=== PATIENT | female | born 1990 | race African-American/Black ===

== ENCOUNTER 2016-12-21 09:13 | Emergency (ER) | payer SELFPAY ==
[2016-12-21 09:19] VITALS: BP 154/98; BMI 44.9
--- NOTE | 2016-12-21 11:01 | DR.GENAD ---
HPI - PCP Primary Care Physician: RAFAEL - Complaint/Symptoms Chief Complaint:: PT C/O SORE THROAT, FEVER, CHILLS, H/A, BODY ACHES. PT STATES IT ALL STARTED YESTERDAY. - Nurses notes reviewed Nurses Notes Review: Yes - Source History Provided: Patient - Mode of Arrival Mode of Arrival: Ambulatory - Timing Onset of Chief Complaint: 12/20/16 Came on: Gradually - Duration Duration: Intermittent How lon Duration: Days - Location Location: generalized - Severity Severity: Moderate - Modifying Factors Worsens:: swallowing - Associated Signs and Symptoms Associated Signs and Symptoms: fever PMH - PMH Past Medical History: Yes Past Medical History: Hypertension Past Surgical History: Yes Surgical History: - Family History History of Family Medical Conditions: Yes Family Medical History: Diabetes Mellitus, Hypertension - Social History Does patient currently use any type of tobacco product: Yes Have you used tobacco products in the last 12 months: Yes Type of Tobacco Use: Cigarettes Does any household member use tobacco: Yes Alcohol Use: None Do you use any recreational Drugs:: No Lives With: Family Lives Where: Home - infectious screening In the last 2 months have you had wt loss of >10#?: NO Have you had fever, night sweats or hemotysis?: No Have you traveled outside the country in the last 6 months?: No Isolation: Standard ROS - Review of Systems Constitutional: Fever Eyes: No Symptoms Reported ENTM: Throat Pain Respiratoy: No Symptoms Reported Cardiovascular: No Symptoms Reported Gastrointestinal/Abdominal: Nausea Genitourinary: No Symptoms Reported Neurological: No Symptoms Reported Musculoskeletal: Joint Pain Hematologic/Lymphatic: No Symptoms Reported Psychiatric: Depression All Other Systems: Reviewed and Negative PE - Vital Signs Vitals: Temperature 102.7 F Pulse Rate 109 Respiratory Rate 20 Blood Pressure [Left Arm] 136/84 Blood Pressure [Right Arm] 136/75 Blood Pressure 154/98 O2 Sat by Pulse Oximetry 99 - General Limitations: No Limitations General Appearance: Alert, In No Apparent Distress - Head Head Exam: Normal Inspection - Eyes Eye exam: Normal Appearance, EOMI. negative: Scleral Icterus, Conjunctival Injection - ENT ENT Exam: negative: Normal Oropharynx External Ear Exam: Normal External Inspection Nose Exam: Normal Nose Exam Mouth Exam: Normal Inspection Throat Exam: Tonsillar Erythema - Neck Neck Exam: Normal Inspection, Full ROM, Trachea Midline - Chest Chest Inspection: Normal Inspection - Respiratory Respiratory Exam: Normal Lung Sounds Bilat. negative: Accessory Muscle Use, Respiratory Distress Respiratory Exam: Bilateral Clear to Auscultation - Cardiovascular Cardiovascular Exam: Tachycardia - Abdominal Exam Abdominal Exam: Normal Inspection, Normal Bowel Sounds, Soft - Extremities Extremities Exam: Normal Inspection, Full ROM - Back Back Exam: Normal Inspection - Neurologic Neurological Exam: Alert, Oriented X3, CN II-XII Intact - Psychiatric Psychiatric Exam: Depressed - Skin Skin Exam: Intact, Normal Color ROR - Labs Reviewed Laboratory: Streptococcus Screen Negative (NEGATIVE) 12/21/16 11:08 - Diagnosis Discharge Problem: Pharyngitis Qualifiers: Pharyngitis/tonsillitis etiology: unspecified etiology Qualified Code(s): J02.9 - Acute pharyngitis, unspecified - Discharge Plan Condition: Stable Prescriptions: Ibuprofen [Motrin Tab 800 mg] 800 mg PO Q8H PRN #30 tab PRN Reason: Pain/Inflammation Ondansetron [Zofran Odt] 4 mg PO Q8H PRN #12 tab PRN Reason: Nausea/Vomiting - Follow ups/Referrals Follow ups/Referrals: WENCESLAO HILLS [Primary Care Provider] - 3 days - Instructions
[2016-12-21] MEDS ORDERED: MOTRIN TAB 800 MG PO ONE ×2 (11:09→11:28)
[2016-12-21] MEDS ORDERED: ZOFRAN TAB 4 MG PO ONE (11:09)
[2016-12-21] MEDS ORDERED: ZOFRAN TAB 4 MG ONE (11:28)
== END 2016-12-21 12:05 | disposition home or self-care (01) ==
LOC: ER 09:13
DX: J02.9 Acute pharyngitis, unspecified (principal); B95.62 Methicillin resistant Staphylococcus aureus infection as the cause of diseases classified elsewhere
CPT/HCPCS: 87070; 87186; 87502; 87503; 87880; 99282; S0181

== ENCOUNTER → 2017-01-10 | Outpatient (CLI) | payer OTHER ==
[2016-12-21 09:19] VITALS: BP 154/98
--- NOTE | 2017-01-10 12:51 | RAD ---
HISTORY: Tendonitis Study: Left wrist 4 views Comparison: None Findings: No evidence for acute cortical disruption or dislocation can be identified. The carpal bones appear well aligned. The visualized portions of the distal radius and ulna are unremarkable. No signific ant soft tissue abnormality can be identified. the joints are normal. IMPRESSION: 1. Negative exam. Reported By:
--- NOTE | 2017-01-10 12:58 | RAD ---
HISTORY: Tendonitis Study: Right wrist four view Comparison: None Findings: No evidence for acute cortical disruption or dislocation can be identified. The carpal bones appear well aligned. The visualized portions of the distal radius and ulna are unremarkable. No signific ant soft tissue abnormality can be identified. the joints are normal. IMPRESSION: 1. Negative exam. Reported By:
--- NOTE | 2017-01-10 12:58 | RAD ---
HISTORY: Low back strain Study: Lumbar spine three view Comparison: September 01, 2016 Findings: Normal alignment of the lumbar spine is maintained. The posterior elements appear unremarkable in t heir appearance. The disk space height is maintained without significant endplate sclerosis. No ev idence for acute fracture can be identified. The SI joints are normal. IMPRESSION: 1. Negative exam. Reported By:
--- NOTE | 2017-01-10 13:00 | RAD ---
Right hand, three views Indication: Tingling and numbness of the fingers. Thumb tendinitis Comparison: None Findings: No cortical lucency or malalignment of the hand identified. The joint spaces are intact. N o significant soft tissue abnormality. Impression: Negative exam of the right hand. Reported By:
--- NOTE | 2017-01-10 13:01 | RAD ---
Left hand, three views Indication: Tingling and numbness of the fingers. Thumb tendinitis Comparison: None Findings: No cortical lucency or malalignment of the hand identified. The joint spaces are intact. N o significant soft tissue abnormality. Impression: Negative exam of the left hand. Reported By:
== END ==
LOC: RAD 11:12
PROVIDERS: ATTEND Nurse Practitioner Family
DX: M77.8 Other enthesopathies, not elsewhere classified (principal); S39.012S Strain of muscle, fascia and tendon of lower back, sequela; X58.XXXS Exposure to other specified factors, sequela
CPT/HCPCS: 72100; 73100; 73130

== ENCOUNTER → 2017-03-21 | Outpatient (CLI) | payer OTHER ==
[2017-03-21 09:37] LABS: BLOOD UREA NITROGEN 9 mg/dL (7-18); CALCIUM 8.9 mg/dL (8.5-10.1); CARBON DIOXIDE 28.2 mmol/L (21-32); CHLORIDE 104 mmol/L (98-107); CHOL/HDL RATIO 2.7 (0.0-5.0); CHOLESTEROL 180 mg/dL (0-200); CREATININE 0.73 mg/dL (0.55-1.02); GLUCOSE 82 mg/dL (65-99); HDL CHOLESTEROL 66 mg/dL (40-60); SODIUM 138 mmol/L (136-145); TRIGLYCERIDES 36 mg/dL (0-150); eGFR BLACK RACES > 60 (>60); eGFR NON BLACK RACES > 60 (>60)
[2017-03-21 09:52] LABS: BASOPHILS # (AUTO) 0.1 X10^3/uL (0.0-0.1); BASOPHILS % (AUTO) 0.8 % (0.2-1.0); EOSINOPHILS # (AUTO) 0.2 x10^3/uL (0.0-0.2); EOSINOPHILS % (AUTO) 2.3 % (0.9-2.9); HEMATOCRIT 37.2 % (36.0-47.0); HEMOGLOBIN 12.6 g/dL (12.0-16.0); LYMPHOCYTES # (AUTO) 3.3 X10^3/uL (1.3-2.9); MEAN CORPUSCULAR HEMOGLOBIN 28.7 pg (27.0-34.0); MEAN CORPUSCULAR HGB CONC 33.9 g/dL (33.0-35.0); MEAN CORPUSCULAR VOLUME 84.8 fL (80.0-100.0); MEAN PLATELET VOLUME 9.5 fL (7.4-11.0); MONOCYTES # (AUTO) 0.5 x10^3/uL (0.3-0.8); MONOCYTES % (AUTO) 6.1 % (0.0-13.0); NEUTROPHILS # (AUTO) 4.8 x10^3/uL (2.2-4.8); NEUTROPHILS % (AUTO) 53.8 % (42.0-75.0); PLATELET COUNT 279 X10^3/uL (150.0-450.0); RED BLOOD COUNT 4.39 X10^6/uL (3.5-5.4); RED CELL DISTRIBUTION WIDTH 13.9 % (11.6-16.5); RETICULOCYTE % 1.89 % (0.8-2.2); WHITE BLOOD COUNT 8.9 X10^3/uL (3.6-10.0)
[2017-03-21 10:35] LABS: ERYTHROCYTE SEDIMENTATION RATE 31 MM/HOUR (0-20)
[2017-03-26 05:29] LABS: METHYLMALONIC ACID 0.11 umol/L (0.00-0.40)
== END ==
LOC: LAB 08:52
PROVIDERS: ATTEND Nurse Practitioner Family
DX: I10 Essential (primary) hypertension (principal); R20.0 Anesthesia of skin; E66.01 Morbid (severe) obesity due to excess calories
CPT/HCPCS: 36415; 80048; 80061; 82607; 82615; 82746; 83918; 85025; 85045; 85652; 86140; 86256; 86340

== ENCOUNTER → 2017-03-27 | Outpatient (CLI) | payer OTHER ==
[2017-03-27 15:05] LABS: T4 (THYROXINE) 7.1 ug/dL (4.7-13.3); TSH (3RD GENERATION) 0.844 uIU/mL (0.358-3.74)
== END ==
LOC: LAB 14:26
PROVIDERS: ATTEND Nurse Practitioner Family
DX: Z13.29 Encounter for screening for other suspected endocrine disorder (principal)
CPT/HCPCS: 36415; 84436; 84443; 86800

== ENCOUNTER 2017-09-03 09:19 | Emergency (ER) | payer OTHER ==
[2017-09-03 09:26] VITALS: BP 140/105; BMI 46.0
--- NOTE | 2017-09-03 09:54 | DR.GENAD ---
HPI - PCP Primary Care Physician: KALINA HILLS - Complaint/Symptoms Chief Complaint Doctors Comments: History as stated of acute ear pain since last night. Denies recent fever, cough or congestion. Chief Complaint:: PATIENT IS C/O PAIN IN HER RIGHT EAR. STARTED LAST NIGHT. - Source History Provided: Patient - Timing Onset of Chief Complaint: 09/02/17 PMH - PMH Past Medical History: Yes Past Medical History: Hypertension Past Surgical History: Yes Surgical History: - Family History History of Family Medical Conditions: Yes Family Medical History: Diabetes Mellitus, Hypertension - Social History Does patient currently use any type of tobacco product: Yes Have you used tobacco products in the last 12 months: Yes Type of Tobacco Use: Cigarettes Does any household member use tobacco: No Alcohol Use: None Do you use any recreational Drugs:: No Lives With: Family Lives Where: Home - infectious screening In the last 2 months have you had wt loss of >10#?: NO Have you had fever, night sweats or hemotysis?: No Have you traveled outside the country in the last 6 months?: No Isolation: Standard ROS - Review of Systems Eyes: No Symptoms Reported ENTM: Ear Pain (right) Respiratoy: No Symptoms Reported Cardiovascular: No Symptoms Reported Gastrointestinal/Abdominal: No Symptoms Reported Genitourinary: No Symptoms Reported Neurological: No Symptoms Reported Musculoskeletal: No Symptoms Reported Integumentary: No Symptoms Reported Hematologic/Lymphatic: No Symptoms Reported Endocrine: No Symptoms Reported Psychiatric: No Symptoms Reported, See HPI All Other Systems: Reviewed and Negative PE - Vital Signs Vitals: Temperature 97.9 F Pulse Rate 78 Respiratory Rate 20 Blood Pressure [Left Arm] 136/84 Blood Pressure [Right Arm] 136/75 Blood Pressure 140/105 O2 Sat by Pulse Oximetry 97 - General Limitations: No Limitations General Appearance: Alert, In No Apparent Distress - Head Head Exam: Normal Inspection, Atraumatic - Eyes Eye exam: Normal Appearance, PERRL, EOMI - ENT ENT Exam: Normal Exam. negative: TM's Normal Bilaterally (Right TM red immobile ) External Ear Exam: Normal External Inspection TM/Canal Exam: Bilateral Normal Nose Exam: Normal Nose Exam Mouth Exam: Normal Inspection Throat Exam: Normal Inspection - Neck Neck Exam: Normal Inspection, Full ROM - Chest Chest Inspection: Normal Inspection - Respiratory Respiratory Exam: Normal Lung Sounds Bilat Respiratory Exam: Bilateral Clear to Auscultation - Cardiovascular Cardiovascular Exam: Regular Rate, Normal Rhythm - Abdominal Exam Abdominal Exam: Normal Inspection, Normal Bowel Sounds Abdominal Tenderness: negative: RUQ, RLQ, LUQ, LLQ, Epigastrium, Suprapubic, Diffuse, Mild, Moderate, Severe, Other - Extremities Extremities Exam: Normal Inspection, Full ROM - Back Back Exam: Normal Inspection, Full ROM, Tenderness - Neurologic Neurological Exam: Alert, Oriented X3, CN II-XII Intact - Skin Skin Exam: Warm, Dry, Intact Course - Education/Counseling Education/Counseling: Education Educated On: Treatment, Diagnosis, Prognosis - Diagnosis Discharge Problem: Right otitis media Qualifiers: Otitis media type: suppurative Chronicity: acute Recurrence: not specified as recurrent Spontaneous tympanic membrane rupture: without spontaneous rupture Qualified Code(s): H66.001 - Acute suppurative otitis media without spontaneous rupture of ear drum, right ear - Discharge Plan Condition: Stable - Follow ups/Referrals Follow ups/Referrals: WENCESLAO HILLS [Primary Care Provider] - 3 days - Instructions
[2017-09-03] MEDS ORDERED: TORADOL 60 MG VIAL IM ONE (09:57)
[2017-09-03] MEDS ORDERED: TORADOL 60 MG VIAL ONE (09:58)
== END 2017-09-03 10:19 | disposition home or self-care (01) ==
LOC: ER 09:29
DX: H66.001 Acute suppurative otitis media without spontaneous rupture of ear drum, right ear (principal)
CPT/HCPCS: 96372; 99282; J1885

== ENCOUNTER 2017-09-16 18:30 | Emergency (ER) | payer OTHER ==
[2017-09-16 18:40] VITALS: BMI 43.2
[2017-09-16] MEDS ORDERED: ZOFRAN SYRUP 4 MG UDC PO ONE (19:06)
[2017-09-16] MEDS ORDERED: ZOFRAN TAB 4 MG ONE (19:07)
--- NOTE | 2017-09-16 19:07 | DR.GENAD ---
HPI - PCP Primary Care Physician: KALINA HILLS - Complaint/Symptoms Chief Complaint Doctors Comments: Patient reports that she has had her influenca shot. Admits to vomiting x 2-3 and diarrhea x2. Chief Complaint:: VOMITNG AND DIARRHEA 3 TIMES IN THE LAST 12 HOURS - Source History Provided: Patient - Mode of Arrival Mode of Arrival: Ambulatory - Timing Onset of Chief Complaint: 09/16/17 PMH - PMH Past Medical History: Yes Past Medical History: Hypertension Past Surgical History: Yes Surgical History: - Family History History of Family Medical Conditions: Yes Family Medical History: Diabetes Mellitus, Hypertension - Social History Type of Tobacco Use: Cigarettes Does any household member use tobacco: Yes Alcohol Use: None Do you use any recreational Drugs:: No Lives With: Family Lives Where: Home - infectious screening In the last 2 months have you had wt loss of >10#?: NO Have you had fever, night sweats or hemotysis?: No Have you traveled outside the country in the last 6 months?: No Isolation: Standard ROS - Review of Systems Eyes: No Symptoms Reported ENTM: No Symptoms Reported Respiratoy: No Symptoms Reported Cardiovascular: No Symptoms Reported Gastrointestinal/Abdominal: Diarrhea, Nausea, Vomiting Genitourinary: No Symptoms Reported Neurological: No Symptoms Reported Musculoskeletal: No Symptoms Reported Integumentary: No Symptoms Reported Hematologic/Lymphatic: No Symptoms Reported Endocrine: No Symptoms Reported Psychiatric: No Symptoms Reported All Other Systems: Reviewed and Negative PE - Vital Signs Vitals: Temperature 97.7 F Pulse Rate 72 Respiratory Rate 18 Blood Pressure [Left Arm] 136/84 Blood Pressure [Right Arm] 136/75 Blood Pressure 135/93 O2 Sat by Pulse Oximetry 99 - General General Appearance: Alert, In No Apparent Distress - Head Head Exam: Normal Inspection, Atraumatic - Eyes Eye exam: Normal Appearance, PERRL, EOMI - ENT ENT Exam: Normal Exam External Ear Exam: Normal External Inspection TM/Canal Exam: Bilateral Normal Nose Exam: Normal Nose Exam Mouth Exam: Normal Inspection Throat Exam: Normal Inspection - Neck Neck Exam: Normal Inspection - Chest Chest Inspection: Normal Inspection - Respiratory Respiratory Exam: Normal Lung Sounds Bilat Respiratory Exam: Bilateral Clear to Auscultation - Cardiovascular Cardiovascular Exam: Regular Rate, Normal Rhythm - Abdominal Exam Abdominal Exam: Normal Inspection, Normal Bowel Sounds Abdominal Tenderness: Suprapubic - Extremities Extremities Exam: Normal Inspection, Full ROM - Back Back Exam: Normal Inspection, Full ROM - Neurologic Neurological Exam: Alert, Oriented X3, CN II-XII Intact - Psychiatric Psychiatric Exam: Normal Affect, Normal Mood - Skin Skin Exam: Warm, Dry, Intact Course - Reevaluation 1st: Improved ROR - Labs Reviewed Laboratory Results Reviewed?: Yes (UA: negative) Laboratory: Specimen Type Clean catch urine 09/16/17 19:21 Urine Color Yellow (YELLOW) 09/16/17 19:21 Urine Appearance Clear (CLEAR) 09/16/17 19:21 Urine pH 6.0 (5.0 - 8.0) 09/16/17 19:21 Ur Specific [place] 1.025 (1.000-1.030) 09/16/17 19:21 Urine Protein 2+ (NEGATIVE) 09/16/17 19:21 Urine Glucose (UA) Negative (NEGATIVE) 09/16/17 19:21 Urine Ketones Negative (NEGATIVE) 09/16/17 19:21 Urine Occult Blood 2+ (NEGATIVE) 09/16/17 19:21 Urine Nitrite Negative (NEGATIVE) 09/16/17 19:21 Urine Bilirubin Negative (NEGATIVE) 09/16/17 19:21 Urine Urobilinogen Normal (NORMAL) 09/16/17 19:21 Ur Leukocyte Esterase Negative (NEGATIVE) 09/16/17 19:21 Urine RBC Rare /HPF (NEGATIVE) 09/16/17 19:21 Urine WBC 0-1 /HPF (NEGATIVE) 09/16/17 19:21 Ur Squamous Epith Cells Numerous /HPF (NEGATIVE) 09/16/17 19:21 Urine Bacteria Trace /HPF (NEGATIVE) 09/16/17 19:21 Ur Culture Indicated? No/not indicated 09/16/17 19:21 - Diagnosis Discharge Problem: Gastroenteritis - Discharge Plan Condition: Stable - Follow ups/Referrals Follow ups/Referrals: WENCESLAO HILLS [Primary Care Provider] - 3 days - Instructions
[2017-09-16] MEDS ORDERED: ZOFRAN SYRUP 4 MG UDC ONE (19:08)
[2017-09-16] MEDS ORDERED: BENTYL I.M. INJ 10 MG IM ONE ×2 (19:32→19:38)
[2017-09-16 19:34] LABS: BILIRUBIN,URINE NEGATIVE (NEGATIVE); BLOOD/HEMOGLOBIN,URINE 2+ (NEGATIVE); GLUCOSE, URINE NEGATIVE (NEGATIVE); KETONES,URINE NEGATIVE (NEGATIVE); LEUKOCYTE ESTERASE ,URINE NEGATIVE (NEGATIVE); NITRITES,URINE NEGATIVE (NEGATIVE); PROTEIN,URINE 2+ (NEGATIVE); UROBILINOGEN,URINE NORMAL (NORMAL)
[2017-09-16 19:48] LABS: APPEARANCE,URINE CLEAR (CLEAR); BACTERIA,URINE TRACE /HPF (NEGATIVE); COLOR,URINE YELLOW (YELLOW); RBC,URINE RARE /HPF (NEGATIVE); SQUAMOUS EPITHELIAL CELL,UR NUMEROUS /HPF (NEGATIVE)
[2017-09-16 20:30] VITALS: BP 128/90
== END 2017-09-16 20:30 | disposition home or self-care (01) ==
LOC: ER 18:30
DX: K52.89 Other specified noninfective gastroenteritis and colitis (principal)
CPT/HCPCS: 81001; 96372; 99282; 99283; S0181; J0500; Q0162

== ENCOUNTER 2017-09-17 15:58 | Emergency (ER) | payer OTHER ==
[2017-09-17 16:04] VITALS: BMI 46.0
--- NOTE | 2017-09-17 17:45 | DR.NAUSEAF ---
HPI - Primary Care Physician Primary Care Physician: Amando HILLS - Complaints Chief Complaint:: PT. C/O N/V/D. PT. WAS SEEN IN THE ER LAST NIGHT AND WAS DIAGNOSED WITH GASTROENTERITIS. PT. HAS VOMITED 6-7 TIMES IN THE PAST 24 HOURS. PT. ALSO C/O ABDOMINAL PAIN. - Reviewed Nurses Notes Reviewed: Yes - Source History Provided: Patient - Mode of Arrival Mode of Arrival: Ambulatory - Timing Onset of Chief Complaint: 09/16/17 PMH - PMH Past Medical History: Yes Past Medical History: Hypertension Past Surgical History: Yes Surgical History: - Family History History of Family Medical Conditions: Yes Family Medical History: Diabetes Mellitus, Hypertension - Social History Does patient currently use any type of tobacco product: Yes Have you used tobacco products in the last 12 months: Yes Type of Tobacco Use: Cigarettes Does any household member use tobacco: No Alcohol Use: None Do you use any recreational Drugs:: No Lives With: Family Lives Where: Home - infectious screening In the last 2 months have you had wt loss of >10#?: NO Have you had fever, night sweats or hemotysis?: No Have you traveled outside the country in the last 6 months?: No Isolation: Standard PE - Vital Signs Vitals: Temperature 98.2 F Pulse Rate 58 Respiratory Rate 18 Blood Pressure [Left Arm] 128/90 Blood Pressure [Right Arm] 136/75 Blood Pressure 167/109 O2 Sat by Pulse Oximetry 97 ROR - Labs Reviewed Result Diagrams: 09/17/17 17:57 09/17/17 17:57 Laboratory: WBC 11.6 X10^3/uL (3.6-10.0) H 09/17/17 17:57 RBC 4.88 X10^6/uL (3.5-5.4) 09/17/17 17:57 Hgb 13.7 g/dL (12.0-16.0) 09/17/17 17:57 Hct 41.0 % (36.0-47.0) 09/17/17 17:57 MCV 84.1 fL (80.0-100.0) 09/17/17 17:57 MCH 28.0 pg (27.0-34.0) 09/17/17 17:57 MCHC 33.3 g/dL (33.0-35.0) 09/17/17 17:57 RDW 13.5 % (11.6-16.5) 09/17/17 17:57 Plt Count 321 X10^3/uL (150.0-450.0) 09/17/17 17:57 MPV 9.2 fL (7.4-11.0) 09/17/17 17:57 Neut % 63.6 % (42.0-75.0) 09/17/17 17:57 Lymph % 26.4 % (21.0-51.0) 09/17/17 17:57 [place] % 8.5 % (0.0-13.0) 09/17/17 17:57 Eos % 0.9 % (0.9-2.9) 09/17/17 17:57 Baso % 0.6 % (0.2-1.0) 09/17/17 17:57 Neut # 7.4 x10^3/uL (2.2-4.8) H 09/17/17 17:57 Lymph # 3.1 X10^3/uL (1.3-2.9) H 09/17/17 17:57 [place] # 1.0 x10^3/uL (0.3-0.8) H 09/17/17 17:57 Eos # 0.1 x10^3/uL (0.0-0.2) 09/17/17 17:57 Baso # 0.1 X10^3/uL (0.0-0.1) 09/17/17 17:57 Absolute Nucleated RBC 0.0 /100WBC 09/17/17 17:57 Sodium 138 mmol/L (136-145) 09/17/17 17:57 Corrected Sodium TNP 09/17/17 17:57 Potassium 3.1 mmol/L (3.5-5.1) L 09/17/17 17:57 Chloride 100 mmol/L (98-107) 09/17/17 17:57 Carbon Dioxide 26.1 mmol/L (21-32) 09/17/17 17:57 BUN 5 mg/dL (7-18) L 09/17/17 17:57 Creatinine 0.74 mg/dL (0.55-1.02) 09/17/17 17:57 Est GFR (MDRD) Af Amer > 60 (>60) 09/17/17 17:57 Est GFR (MDRD) Non-Af > 60 (>60) 09/17/17 17:57 Glucose 100 mg/dL (65-99) H 09/17/17 17:57 Calcium 9.0 mg/dL (8.5-10.1) 09/17/17 17:57 Corrected Calcium TNP 09/17/17 17:57 Total Bilirubin 0.50 mg/dL (0.2-1.0) 09/17/17 17:57 AST 24 Units/L (15-37) 09/17/17 17:57 ALT 38 Units/L (12-78) 09/17/17 17:57 Alkaline Phosphatase 96 Units/L (46-116) 09/17/17 17:57 Total Protein 8.6 g/dL (6.4-8.2) H 09/17/17 17:57 Albumin 3.4 g/dL (3.4-5.0) 09/17/17 17:57 Globulin 5.2 g/dL (2.5-4.5) H 09/17/17 17:57 Albumin/Globulin Ratio 0.7 Ratio (1.1-2.1) L 09/17/17 17:57 Amylase 69 Units/L (25-115) 09/17/17 17:57 Lipase 75 Units/L (73-393) 09/17/17 17:57 HCG, Qual Negative <10 mIU/mL 09/17/17 17:57 - Discharge Plan Condition: Stable Prescriptions: Diphenoxylate/Atropine [Lomotil] 1 tab PO TID #21 tab Ondansetron [Zofran ODT 8 mg] 8 mg PO Q8H PRN #15 tab PRN Reason: Nausea/Vomiting - Follow ups/Referrals Follow ups/Referrals: WENCESLAO HILLS [Primary Care Provider] - 3 days - Instructions Instructions: Viral Gastroenteritis, Adult, [id number], Abdominal Pain, Adult , [id number]
[2017-09-17] MEDS ORDERED: BENTYL I.M. INJ 10 MG IM ONE ×2 (17:47→18:21)
[2017-09-17] MEDS ORDERED: NS 1000 ML 1,000 ML IV ONE (17:47)
[2017-09-17] MEDS ORDERED: ZOFRAN INJ 4 MG VIAL IVP ONE (17:47)
[2017-09-17 18:14] LABS: BASOPHILS # (AUTO) 0.1 X10^3/uL (0.0-0.1); BASOPHILS % (AUTO) 0.6 % (0.2-1.0); EOSINOPHILS # (AUTO) 0.1 x10^3/uL (0.0-0.2); EOSINOPHILS % (AUTO) 0.9 % (0.9-2.9); HEMOGLOBIN 13.7 g/dL (12.0-16.0); LYMPHOCYTES # (AUTO) 3.1 X10^3/uL (1.3-2.9); LYMPHOCYTES % (AUTO) 26.4 % (21.0-51.0); MEAN CORPUSCULAR HGB CONC 33.3 g/dL (33.0-35.0); MEAN CORPUSCULAR VOLUME 84.1 fL (80.0-100.0); MEAN PLATELET VOLUME 9.2 fL (7.4-11.0); MONOCYTES % (AUTO) 8.5 % (0.0-13.0); NEUTROPHILS # (AUTO) 7.4 x10^3/uL (2.2-4.8); NEUTROPHILS % (AUTO) 63.6 % (42.0-75.0); PLATELET COUNT 321 X10^3/uL (150.0-450.0); RED BLOOD COUNT 4.88 X10^6/uL (3.5-5.4); RED CELL DISTRIBUTION WIDTH 13.5 % (11.6-16.5); WHITE BLOOD COUNT 11.6 X10^3/uL (3.6-10.0)
[2017-09-17 18:21] LABS: SERUM PREGNANCY TEST, QUAL NEGATIVE <10 mIU/mL
[2017-09-17] MEDS ORDERED: ZOFRAN INJ 4 MG VIAL ONE (18:21)
[2017-09-17] MEDS ORDERED: NS 1000 ML 1,000 ML ONE (18:21)
[2017-09-17 18:28] LABS: BLOOD UREA NITROGEN 5 mg/dL (7-18); CARBON DIOXIDE 26.1 mmol/L (21-32); CHLORIDE 100 mmol/L (98-107); CREATININE 0.74 mg/dL (0.55-1.02); SODIUM 138 mmol/L (136-145); eGFR BLACK RACES > 60 (>60); eGFR NON BLACK RACES > 60 (>60)
[2017-09-17 18:33] LABS: ALANINE AMINOTRANSFERASE 38 Units/L (12-78); ALBUMIN 3.4 g/dL (3.4-5.0); ALKALINE PHOSPHATASE 96 Units/L (46-116); AMYLASE 69 Units/L (25-115); ASPARTATE AMINO TRANSFERASE 24 Units/L (15-37); LIPASE 75 Units/L (73-393); TOTAL PROTEIN 8.6 g/dL (6.4-8.2)
--- NOTE | 2017-09-17 19:31 | RAD ---
ACUTE ABDOMINAL SERIES CLINICAL HISTORY: 27-year-old female with abdominal pain, vomiting and diarrhea. COMPARISON: None. FINDINGS: PA chest radiograph demonstrates normal cardiopericardial silhouette. There is no focal consolidation , pleural effusion or pneumothorax. Pulmonary vascularity is normal. Abdominal radiographs demonstrate a nonobstructive bowel gas pattern. Gas and stool are seen througho ut the colon. There is no small bowel distention. There is no radiographic evidence of pneumoperitone um. Imaged osseous structures are intact. Soft tissues are unremarkable. IMPRESSION: 1. No acute cardiopulmonary process. 2. Nonobstructive bowel gas pattern without radiographic evidence of pneumoperitoneum. Reported By:
[2017-09-17] MEDS ORDERED: LOMOTIL PO ONE (19:40)
[2017-09-17] MEDS ORDERED: K-LYTE EFFERVESCENT PO ONE (19:40)
[2017-09-17] MEDS ORDERED: K-LYTE EFFERVESCENT ONE (19:44)
[2017-09-17] MEDS ORDERED: LOMOTIL ONE (19:44)
[2017-09-17 20:01] VITALS: BP 147/94
== END 2017-09-17 20:01 | disposition home or self-care (01) ==
LOC: ER 16:08
DX: A08.4 Viral intestinal infection, unspecified (principal); R10.84 Generalized abdominal pain
CPT/HCPCS: 36415; 74022; 80053; 82150; 83690; 84703; 85025; 96365; 96367; 96372; 96374; 99282; 99283; A4222; J0500; J2405

== ENCOUNTER → 2017-09-20 | Outpatient (CLI) | payer OTHER ==
[2017-09-17 20:01] VITALS: BP 147/94
== END ==
LOC: LAB 15:14
PROVIDERS: ATTEND Nurse Practitioner Family
DX: E87.6 Hypokalemia (principal)
CPT/HCPCS: 36415; 84132

== ENCOUNTER → 2017-09-28 | Outpatient (CLI) | payer OTHER ==
[2017-09-17 20:01] VITALS: BP 147/94
== END ==
LOC: RT 11:39
PROVIDERS: ATTEND Nurse Practitioner Family
DX: R20.0 Anesthesia of skin (principal)
CPT/HCPCS: 95911

== ENCOUNTER → 2017-12-20 | Outpatient (CLI) | payer OTHER ==
[2017-12-20 09:20] LABS: BASOPHILS # (AUTO) 0.1 X10^3/uL (0.0-0.1); BASOPHILS % (AUTO) 0.7 % (0.2-1.0); EOSINOPHILS # (AUTO) 0.3 x10^3/uL (0.0-0.2); EOSINOPHILS % (AUTO) 2.6 % (0.9-2.9); HEMATOCRIT 37.8 % (36.0-47.0); HEMOGLOBIN 12.5 g/dL (12.0-16.0); LYMPHOCYTES # (AUTO) 3.8 X10^3/uL (1.3-2.9); MEAN CORPUSCULAR HEMOGLOBIN 28.4 pg (27.0-34.0); MEAN CORPUSCULAR HGB CONC 33.2 g/dL (33.0-35.0); MEAN CORPUSCULAR VOLUME 85.6 fL (80.0-100.0); MEAN PLATELET VOLUME 9.4 fL (7.4-11.0); MONOCYTES # (AUTO) 0.7 x10^3/uL (0.3-0.8); MONOCYTES % (AUTO) 6.9 % (0.0-13.0); NEUTROPHILS # (AUTO) 5.6 x10^3/uL (2.2-4.8); NEUTROPHILS % (AUTO) 53.8 % (42.0-75.0); PLATELET COUNT 276 X10^3/uL (150.0-450.0); RED BLOOD COUNT 4.41 X10^6/uL (3.5-5.4); RED CELL DISTRIBUTION WIDTH 13.8 % (11.6-16.5); WHITE BLOOD COUNT 10.4 X10^3/uL (3.6-10.0)
[2017-12-20 09:21] LABS: ALANINE AMINOTRANSFERASE 33 Units/L (12-78); ALBUMIN 3.3 g/dL (3.4-5.0); ALKALINE PHOSPHATASE 95 Units/L (46-116); ASPARTATE AMINO TRANSFERASE 19 Units/L (15-37); BLOOD UREA NITROGEN 8 mg/dL (7-18); CALCIUM 8.6 mg/dL (8.5-10.1); CARBON DIOXIDE 30.5 mmol/L (21-32); CHLORIDE 102 mmol/L (98-107); CHOL/HDL RATIO 3.2 (0.0-5.0); CHOLESTEROL 172 mg/dL (0-200); COR CA(FOR HYPOALB) 9.2 mg/dL (8.5-10.1); CREATININE 0.77 mg/dL (0.55-1.02); HDL CHOLESTEROL 53 mg/dL (40-60); SODIUM 138 mmol/L (136-145); TOTAL PROTEIN 8.2 g/dL (6.4-8.2); TRIGLYCERIDES 76 mg/dL (0-150); eGFR BLACK RACES > 60 (>60); eGFR NON BLACK RACES > 60 (>60)
== END ==
LOC: LAB 08:48
PROVIDERS: ATTEND Nurse Practitioner Family
DX: I10 Essential (primary) hypertension (principal); E78.4 Other hyperlipidemia
CPT/HCPCS: 36415; 80053; 80061; 81050; 84157; 85025

== ENCOUNTER → 2017-12-20 | Outpatient (CLI) | payer OTHER ==
[2017-12-20 17:04] LABS: TOTAL PROTEIN,URINE 9.3 mg/dl (0-11.9)
== END ==
LOC: LAB 16:28
PROVIDERS: ATTEND Psychiatry & Neurology Neurology
DX: R80.8 Other proteinuria (principal)
CPT/HCPCS: 81050; 84157

== ENCOUNTER → 2018-01-02 | Outpatient (CLI) | payer OTHER ==
[2018-01-02 10:59] LABS: C-REACTIVE PROTEIN 6.8 mg/L (0-3.0); URIC ACID 3.8 mg/dL (2.6-6.0)
--- NOTE | 2018-01-02 11:28 | RAD ---
Examination: X-rays of the left ankle. Clinical history: Bilateral foot and ankle pain after injury at work 3 months ago. Technique: Three views of the left ankle were obtained. Comparison: None available. Findings: No acute fracture, dislocation, or destructive bony lesion is noted. Bony spurs are noted at the plantar and posterior aspects of the calcaneus, consistent with enthesopa thy. No soft tissue abnormality is noted. Impression: 1. No acute fracture or dislocation. Reported By:
--- NOTE | 2018-01-02 11:29 | RAD ---
Examination: X-rays of the left foot. Clinical history: Bilateral foot and ankle pain after injury at work 3 months ago. Technique: Three views of the left foot were obtained. Comparison: None available. Findings: No acute fracture, dislocation, or destructive bony lesion is noted. Bony spurs are noted at the plantar and posterior aspects of the calcaneus, consistent with enthesopa thy. No soft tissue abnormality is noted. Impression: 1. No acute fracture or dislocation. Reported By:
--- NOTE | 2018-01-02 11:30 | RAD ---
Examination: X-rays of the right ankle. Clinical history: Bilateral foot and ankle pain after injury at work 3 months ago. Technique: Three views of the right ankle were obtained. Comparison: None available. Findings: No acute fracture, dislocation, or destructive bony lesion is noted. Bony spurs are noted at the plantar and posterior aspects of the calcaneus, consistent with enthesopa thy. No soft tissue abnormality is noted. Impression: 1. No acute fracture or dislocation. Reported By:
--- NOTE | 2018-01-02 11:31 | RAD ---
Examination: X-rays of the right foot. Clinical history: Bilateral foot and ankle pain after injury at work 3 months ago. Technique: Three views of the right foot were obtained. Comparison: None available. Findings: No acute fracture, dislocation, or destructive bony lesion is noted. Bony spurs are noted at the plantar and posterior aspects of the calcaneus, consistent with enthesopa thy. No soft tissue abnormality is noted. Impression: 1. No acute fracture or dislocation. Reported By:
== END ==
LOC: LAB 10:10
PROVIDERS: ATTEND Nurse Practitioner Family
DX: M25.571 Pain in right ankle and joints of right foot (principal); M25.572 Pain in left ankle and joints of left foot
CPT/HCPCS: 36415; 73610; 73630; 84550; 85652; 86140

== ENCOUNTER 2018-11-13 11:45 | Observation (INO) ==
[2018-11-13] MEDS ORDERED: TUSSIONEX PENNKINETIC SUSP PO PRN (13:16)
[2018-11-13] MEDS ORDERED: NS 1/2 1000 ML IV 1,000 ML IV ONE (13:42)
[2018-11-13 13:59] LABS: BASOPHILS # (AUTO) 0.1 X10^3/uL (0.0-0.1); BASOPHILS % (AUTO) 0.4 % (0.2-1.0); EOSINOPHILS # (AUTO) 0.1 x10^3/uL (0.0-0.2); EOSINOPHILS % (AUTO) 0.5 % (0.9-2.9); HEMATOCRIT 41.2 % (36.0-47.0); HEMOGLOBIN 13.8 g/dL (12.0-16.0); LYMPHOCYTES % (AUTO) 14.6 % (21.0-51.0); MEAN CORPUSCULAR HEMOGLOBIN 28.5 pg (27.0-34.0); MEAN CORPUSCULAR HGB CONC 33.6 g/dL (33.0-35.0); MEAN CORPUSCULAR VOLUME 84.9 fL (80.0-100.0); MEAN PLATELET VOLUME 9.4 fL (7.4-11.0); MONOCYTES # (AUTO) 0.7 x10^3/uL (0.3-0.8); MONOCYTES % (AUTO) 5.1 % (0.0-13.0); NEUTROPHILS # (AUTO) 11.1 x10^3/uL (2.2-4.8); NEUTROPHILS % (AUTO) 79.4 % (42.0-75.0); PLATELET COUNT 312 X10^3/uL (150.0-450.0); RED BLOOD COUNT 4.85 X10^6/uL (3.5-5.4); RED CELL DISTRIBUTION WIDTH 13.3 % (11.6-16.5); WHITE BLOOD COUNT 13.9 X10^3/uL (3.6-10.0)
[2018-11-13 14:05] LABS: ALANINE AMINOTRANSFERASE 31 Units/L (12-78); ALBUMIN 3.7 g/dL (3.4-5.0); ALKALINE PHOSPHATASE 101 Units/L (46-116); ASPARTATE AMINO TRANSFERASE 21 Units/L (15-37); BLOOD UREA NITROGEN 12 mg/dL (7-18); CALCIUM 9.8 mg/dL (8.5-10.1); CARBON DIOXIDE 26.5 mmol/L (21-32); CHLORIDE 99 mmol/L (98-107); CREATININE 0.83 mg/dL (0.55-1.02); SODIUM 136 mmol/L (136-145); TOTAL PROTEIN 9.2 g/dL (6.4-8.2); eGFR NON BLACK RACES > 60 (>60)
--- NOTE | 2018-11-13 14:12 | RAD ---
Examination: Chest, PA and lateral views History: Pneumonia Comparison 11/10/2018 Findings: Continued normal heart size with clear lungs and pleural spaces. Impression: No interval change or acute chest abnormality demonstrated. Reported By:
[2018-11-13] MEDS: LEVAQUIN PREMIX IV 750 MG 750 MG/150 ML BAG IV SCH (14:24)
[2018-11-13] MEDS: NS 1/2 1000 ML IV 1,000 ML IV SCH (14:24)
[2018-11-13] MEDS: FORTAZ or TAZICEF VIAL INJ IVP SCH ×2 (14:24→21:17)
[2018-11-13] MEDS: SOLU-Medrol 40 MG VIAL IVP SCH ×2 (14:25→21:17)
[2018-11-13] MEDS: DUONEB 0.5 MG/3 MG NEB SCH ×3 (14:35→21:11)
[2018-11-13 14:47] VITALS: BMI 47.3
[2018-11-13] MEDS ORDERED: FLUVIRIN IM ONE (15:30)
[2018-11-13] MEDS: ROBITUSSIN DM PO SCH ×2 (16:27→21:17)
[2018-11-13] MEDS ORDERED: K-RIDER 10 MEQ/NS 100 ML 10 MEQ/100 ML BAG IV PRN (17:02)
[2018-11-13] MEDS ORDERED: POTASSIUM CHL 40 MEQ/NS 0.45% 500 ML IV PRN (17:02)
[2018-11-13] MEDS ORDERED: POTASSIUM CHLORIDE LIQ 20 MEQ UDC PO PRN (17:02)
[2018-11-13] MEDS ORDERED: POTASSIUM CHL 60 MEQ/NS 0.45% 500 ML IV PRN (17:02)
[2018-11-13] MEDS ORDERED: KLOR-CON PO PRN (17:02)
[2018-11-13] MEDS ORDERED: MICRO K EXTEN CAP 10 MEQ PO PRN (17:02)
[2018-11-13] MEDS ORDERED: K-DUR TAB 20 MEQ PO ONE (17:25)
[2018-11-13] MEDS: K-DUR TAB 20 MEQ PO PRN (17:32)
[2018-11-13] MEDS: PULMICORT NEB TX 0.5 MG NEB SCH (21:11)
[2018-11-14] MEDS: DUONEB 0.5 MG/3 MG NEB SCH ×3 (00:58→08:23)
[2018-11-14] MEDS ORDERED: NS 1/2 1000 ML IV 1,000 ML IV ONE (05:13)
[2018-11-14 05:21] LABS: BASOPHILS % (AUTO) 0.1 % (0.2-1.0); HEMATOCRIT 41.4 % (36.0-47.0); HEMOGLOBIN 13.7 g/dL (12.0-16.0); LYMPHOCYTES # (AUTO) 1.4 X10^3/uL (1.3-2.9); LYMPHOCYTES % (AUTO) 10.5 % (21.0-51.0); MEAN CORPUSCULAR HEMOGLOBIN 28.6 pg (27.0-34.0); MEAN CORPUSCULAR HGB CONC 33.2 g/dL (33.0-35.0); MEAN CORPUSCULAR VOLUME 86.3 fL (80.0-100.0); MEAN PLATELET VOLUME 9.9 fL (7.4-11.0); MONOCYTES # (AUTO) 0.3 x10^3/uL (0.3-0.8); MONOCYTES % (AUTO) 2.1 % (0.0-13.0); NEUTROPHILS # (AUTO) 11.4 x10^3/uL (2.2-4.8); NEUTROPHILS % (AUTO) 87.3 % (42.0-75.0); PLATELET COUNT 323 X10^3/uL (150.0-450.0); RED CELL DISTRIBUTION WIDTH 13.4 % (11.6-16.5); WHITE BLOOD COUNT 13.1 X10^3/uL (3.6-10.0)
[2018-11-14] MEDS: NS 1/2 1000 ML IV 1,000 ML IV SCH (05:22)
[2018-11-14] MEDS: FORTAZ or TAZICEF VIAL INJ IVP SCH (05:27)
[2018-11-14] MEDS: SOLU-Medrol 40 MG VIAL IVP SCH (05:27)
[2018-11-14 05:32] LABS: ALANINE AMINOTRANSFERASE 28 Units/L (12-78); ALBUMIN 3.3 g/dL (3.4-5.0); ALKALINE PHOSPHATASE 93 Units/L (46-116); ASPARTATE AMINO TRANSFERASE 17 Units/L (15-37); BLOOD UREA NITROGEN 11 mg/dL (7-18); CALCIUM 9.7 mg/dL (8.5-10.1); CHLORIDE 98 mmol/L (98-107); COR CA(FOR HYPOALB) 10.3 mg/dL (8.5-10.1); COR NA(FOR HYPERGLY) 138 mmol/L (136-145); CREATININE 0.93 mg/dL (0.55-1.02); SODIUM 136 mmol/L (136-145); TOTAL PROTEIN 8.8 g/dL (6.4-8.2); eGFR NON BLACK RACES > 60 (>60)
[2018-11-14] MEDS: K-DUR TAB 20 MEQ PO PRN (06:06)
[2018-11-14] MEDS: PULMICORT NEB TX 0.5 MG NEB SCH (08:23)
[2018-11-14] MEDS: LEVAQUIN PREMIX IV 750 MG 750 MG/150 ML BAG IV SCH (08:36)
[2018-11-14] MEDS: ROBITUSSIN DM PO SCH (08:37)
[2018-11-14 09:40] VITALS: BP 113/59
--- NOTE | 2018-12-03 08:28 | DR.UPDATE ---
H&P Update History and Physical Update: WAS SEEN IN THE OFFICE TODAY FOR COMPLAINTS OF PERSISTENT, PRODUCTIVE COUGH, CONGESTION, AND FEVER. SHE REPORTS THAT SYMPTOMS STARTED SEVERAL DAYS AGO. SHE WAS SEEN IN THE ER OVER THE WEEKEND AND GIVEN PRESCRIPTIONS FOR AMOXICILLIN, COUGH MEDICATIONS, AND FLONASE. SHE REPORTS THAT SYMPTOMS HAVE WORSENED DESPITE COMPLIANCE WITH MEDICATIONS. SHE WAS ADMITTED FOR BRONCHOPNEUMONIA AND STARTED ON THE PNEUMONIA PROTOCOL. ON ADMISSION, LABS REVEALED A WBC OF 13.9. A CHEST XRAY WAS OBTAINED. SHE WAS STARTED ON IV FORTAZ AND LEVAQUIN WELL RESPIRATORY TREATMENTS AND SUPPLEMENTAL OXYGEN. WE PLAN TO FOLLOW UP WITH [facility] AND CONTINUE TO MONITOR. Changes noted: NO Yes with the following:
--- NOTE | 2018-12-03 08:34 | DR.CARTERS ---
Short Stay Summary - Short Stay Summary for: Short Stay Summary for Date of:: 11/14/18 - Admission Date Date of Admission: 11/13/18 - Discharge Date Discharge Date: 11/14/18 - Admission Diagnoses (1) Bronchopneumonia Status: Acute - Hospital Course Hospital Course: WAS SEEN IN THE OFFICE BY BASIL LOWRY YESTERDAY FOR COMPLAINTS OF PERSISTENT, PRODUCTIVE COUGH, CONGESTION, AND FEVER. SHE REPORTED THAT SYMPTOMS STARTED SEVERAL DAYS AGO. SHE WAS SEEN IN THE ER OVER THE WEEKEND AND GIVEN PRESCRIPTIONS FOR AMOXICILLIN, COUGH MEDICATIONS, AND FLONASE. SHE REPORTED THAT SYMPTOMS HAD WORSENED DESPITE COMPLIANCE WITH MEDICATIONS. SHE WAS ADMITTED FOR BRONCHOPNEUMONIA AND STARTED ON THE PNEUMONIA PROTOCOL. ON ADMISSION, LABS REVEALED A WBC OF 13.9. A CHEST XRAY WAS OBTAINED. SHE WAS STARTED ON IV FORTAZ AND LEVAQUIN WELL RESPIRATORY TREATMENTS AND SUPPLEMENTAL OXYGEN. WE PLANNED TO FOLLOW UP WITH AM LABS AND CONTINUE TO MONITOR. ON THE MORNING FOLLOWING ADMISSION, PATIENT REPORTS FEELING WELL. SHE REPORTS THAT COUGH HAS IMPROVED. SHE HAS BEEN AFEBRILE THROUGHOUT THE NIGHT. LUNGS ARE CLEAR TO AUSCULTATION. HER VITALS THIS MORNING ARE 98.6-58-28-98%-113/59. LABS WERE OBTAINED. ABNORMAL LAB VALUES INCLUDE THE FOLLOWING: WBC 13.1, POTASSIUM 3.4, GLUCOSE 164, TOTAL PROTEIN 8.8, ALBUMIN 3.3. CHEST XRAY CLEAR. WE PLANNED FOR DISCHARGE. INSTRUCTIONS FOR MEDICATIONS AND FOLLOW-UP WERE DISCUSSED WITH PATIENT. SHE VERBALIZED UNDERSTANDING. SHE WAS DISCHARGED WITH PRESCRIPTIONS FOR LEVAQUIN 750MG PO DAILY, DUONEBS TID, AND INSTRUCTED TO CONTINUE HOME MEDICATIONS. SHE WAS INSTRUCTED TO FOLLOW UP WITH BASIL LOWRY NEXT WEEK. PATIENT DISCHARGED HOME IN STABLE CONDITION. - Discharge Medications Discharge Medications: Home Medication List amlodipine 10 mg PO DAILY 11/13/18 [History] hydrochlorothiazide 25 mg PO DAILY 11/13/18 [History] methylprednisolone 4 mg PO DAILY 11/13/18 [History] metoprolol succinate 50 mg PO DAILY 11/13/18 [History] benzonatate [Tessalon Perles] 200 mg PO TID PRN #30 cap 11/14/18 [Rx] ipratropium-albuterol 1 neb NEB TID #90 each 11/14/18 [Rx] levofloxacin [Levaquin] 750 mg PO QDAY #10 tab 11/14/18 [Rx] Prescriptions: benzonatate [Tessalon Perles] Tenzin Franco ipratropium-albuterol Tenzin Franco levofloxacin [Levaquin] Tenzin Franco - Discharge Plan Disposition: 01 HOME, SELF-CARE Condition: Stable Prescriptions: benzonatate [Tessalon Perles] 200 mg PO TID PRN #30 cap PRN Reason: cough ipratropium-albuterol 1 neb NEB TID #90 each levofloxacin [Levaquin] 750 mg PO QDAY #10 tab - Follow up/Referrals Follow up/Referrals: MANUEL LOWRY [Primary Care Provider] - 1 WEEK - Instructions Instructions: Steps to Quit Smoking, [id number], Coping with Quitting Smoking, Health Risks of Smoking, Shortness of Breath, Adult, Vauj-un-Hplu, Personal Hygiene, Cough, Adult, Ojip-ey-Bcem, How to Take Your Blood Pressure, [id number]-ww-[id number], Fatigue, Weakness, [id number], Form - Blood Pressure Record Sheet, Upper Respiratory Infection, Adult, Pkon-gh-Vcuw, Hypertension, [id number]-rx-[id number], Secondhand Smoke, Managing Your Hypertension Forms: Patient Portal
== END 2018-11-14 12:35 | disposition home or self-care (01) ==
LOC: MED/SURG
PROVIDERS: ADMIT Internal Medicine; ATTEND Internal Medicine
DX: R73.09 Other abnormal glucose; R05 Cough; J18.0 Bronchopneumonia, unspecified organism; E87.6 Hypokalemia; Z23 Encounter for immunization
CPT/HCPCS: 36415; 71020; 71046; 80053; 83735; 85025; 87040; 87070; 87205; 90674; 90686; 94640; 94760; 96367; 96372; 96374; A4222; G0378; J0713; J1956; J2920; J7620; J7626